=== PATIENT | male | born 1965 | race Caucasian/White ===

== ENCOUNTER 2019-02-23 18:57 | Inpatient (IN) | payer OTHER ==
[~2019-02-23] VITALS: Ht 30.5 cm; Wt 6.0 kg
[2019-02-23] MEDS ORDERED: ASPIR 8181 MG (19:48)
[2019-02-23] MEDS ORDERED: ZESTRIL10 M1 (19:48)
[2019-02-23] MEDS ORDERED: FORTAMET500 MG (19:48)
[2019-02-23] MEDS ORDERED: ATORVASTATIN CA20 MG (19:49)
--- NOTE | 2019-02-23 19:49 | NUR ---
SE RECIBE PTE EL CUAL LLEGA DE CRUCERO TRANSPORTADO EN AMBULANCIA AER[place], EL CUAL REFIERE PRESENTAR SANGRADO RECTAL ACTIVO DESDE HORAS TEMPRANAS DEL VERO PRESENTANDO 2 EVACUACIONES CON SANGRADO INTENSO, CON RESULTADO DE HBG EN 10.7 EQUIPO MEDICO TRANSFUNDE 1 UNIDAD DE PRBC Y FRACCION DE OTRA. AL MOMENTO DE LLEGA DE PTE SE UBICA EN K8 SE HACE GUILLERMINA DE S/V Y SE CONECTA A MONITOR CARDIACO CON OXIMETRIA DE PULSO. SE MANTIENE BAJO OBSERVACION RECIBIENDO TRATAMIENTO MEDICO.
--- NOTE | 2019-02-23 20:31 | NUR ---
SE RECIBE PACIENTE ALERTA Y ORIENTADO EN CAMA CON BARANDAS ELEVADAS POR SHEIKH SEGURIDAD. PACIENTE CONECTADO A MONITOR CARDIACO Y OXIMETRIA . PACIENTE CON VENOPUCION PATENTE EMILY DE EDEMA Y ERRITEMA EN [place]. SE ORIENTA A PACIENTE SOBRE TRATAMIENTO MEDICO SE EXTRAEN MUESTRAS DE JIGNESH Y SE ADMINISTRAN MEDICAMENTOS SAVANNAH ORDEN MEDICA BAJO MEDIDAS ASEPTICAS. SE ORIENTA A PACIENTE SOBRE CT ABDOMINO PELVICO.
--- NOTE | 2019-02-24 00:31 | NUR ---
PTE ALERTA Y ORIENTADO X 3 ESFERAS EN CAMA CON BARANDAS ELEVADAS,SIN FAMILIAR AL MOMENTO DE LA MANISHA,CONECTADO A MONITOR CARDIACO Y OXIMETRIA,AREAS DE VENOPUNCIONES PATENTES Y LIBRES DE EDEMA CON FLUIDOS DE MANTENIMENTO BAJANDO SIN DIFICULTAD,NO REFIERE DOLOR NI SANGRADO AL MOMENTO,PRESENTA BUEN PATRON RESP,SE A[place]IS BAJO OBSERVACION POR CAMBIOS Y EVALUACION DE DR E JIN.
--- NOTE | 2019-02-24 09:01 | NUR ---
PACIENTE ALERTA Y ORIENTADO EN JILLIAN NICOL ESFERAS CONECTADO A MONITOR CARDIACO Y OXIMETRIA DE PULSO, SE OBSERVA IVF'S PATENTE EMILY DE EDEMA Y ENROJECIMIENTO BAJANDO UN .9NSS @100ML/HR. PENDIENTE CONSULTA CON DR. Barbara JIN.
[2019-03-03] MEDS ORDERED: PROTONIX40 MG PO (09:25)
== END 2019-03-03 10:41 | disposition home or self-care (01) | DRG 378 ==
LOC: ER 18:57 → MEDJ 02-24 11:58
PROVIDERS: ADMIT Internal Medicine
PROC: CD171ZZ Planar Nuclear Medicine Imaging of Gastrointestinal Tract using Technetium 99m (Tc-99m) (ICD-10-PCS; 2019-02-24)
PROC: 0DJ08ZZ Inspection of Upper Intestinal Tract, Via Natural or Artificial Opening Endoscopic (ICD-10-PCS; principal; 2019-02-25)
PROC: 0DJD8ZZ Inspection of Lower Intestinal Tract, Via Natural or Artificial Opening Endoscopic (ICD-10-PCS; 2019-02-26)
PROC: 30233N1 Transfusion of Nonautologous Red Blood Cells into Peripheral Vein, Percutaneous Approach (ICD-10-PCS; 2019-02-26)
DX: K57.31 Diverticulosis of large intestine without perforation or abscess with bleeding (principal); D62 Acute posthemorrhagic anemia; K62.5 Hemorrhage of anus and rectum; K76.0 Fatty (change of) liver, not elsewhere classified; E03.8 Other specified hypothyroidism; I10 Essential (primary) hypertension; E11.9 Type 2 diabetes mellitus without complications; Z79.4 Long term (current) use of insulin